=== PATIENT | female | born 1935 | race Caucasian/White ===

== ENCOUNTER → 2020-06-22 11:32 | Outpatient (BNVA) | payer MEDICARE, SELFPAY | PROVIDERS: Family Provider Physician Assistant Medical; PCP Physician Assistant Medical; Visit Provider Orthopaedic Surgery | DX: T84.84XA Pain due to internal orthopedic prosthetic devices, implants and grafts, initial encounter (principal) | CPT/HCPCS: 73610; 87070; 87075; 87205; 87635 ==

== ENCOUNTER 2020-06-27 05:52 | Day surgery (SDC) | payer MEDICARE, SELFPAY ==
[2020-06-24 17:08] VITALS: BMI 21.1
[2020-06-27] VITALS (10 sets, daily range): BP systolic 112–165; BP diastolic 42–93; PULSE 82–90; RESP 12–18; TEMP 36.4–36.6; O2SAT 93–100
[2020-06-27] MEDS: sodium chloride 0.9% 1,000 ML 30 ML IV (06:25)
--- NOTE | 2020-06-27 06:31 | ANES.PREANE2 ---
Pre-Anesthetic Assessment Pre-Anesthetic Assessment: Height/Weight: Height 1.7 m Weight 61.235 kg Temp Pulse Resp BP Pulse Ox 97.8 F 86 18 165/59 98 06/27/20 06:10 06/27/20 06:10 06/27/20 06:10 06/27/20 06:10 06/27/20 06:10 Preop Diagnosis: Infection right lateral Proposed Procedure: Operation Date: 06/27/20 07:00 Proposed Procedures p Hardware Removal right lateral Ankle 40734 T84.84XA(Right) - Kamar Willoughby MD Familial anesthetic complications: None Was Beta Ras taken within 24 hours: N/A Last intake: Intake Last Liquid Date 06/26/20 Last Liquid Time 22:30 Last Solid Date 06/26/20 Last Solid Time 22:30 Social: Social History: Tobacco and No alcohol Exam: Pre-Anes Outpt Exam: alert, oriented x 3, clear to auscultation bilaterally and regular rate & rhythm Airway: Cervical ROM: WNL MP: 2 Dentition: Partials Pulmonary: Pulmonary: GRAVES CV/HEM: CV/HEM: HTN Anesthetic Plan: ASA status: 2 Anesthesia: General Risk of > 500 ml blood loss (7ml/kg in children): No Meds/Allergies Current Medications: Current Medications Generic Name Dose Route Start Last Admin Trade Name Freq PRN Reason Stop Dose Admin Sodium Chloride 1,000 mls @ 30 ml s/hr 06/27/20 06:00 06/27/20 06:25 Sodium Chloride 0.9% IV 06/28/20 05:59 30 mls/hr .Q24H LAURA Administration PFSH Anesthesia PFSH: Social History (Updated 06/22/20 @ 11:23 by Parag Bender LPN) Smoking and tobacco status: never smoked Alcohol intake: never Data Anesthesia Cardiac Studies: No Data to Display
--- NOTE | 2020-06-27 07:09 | W.PM.OPSUD ---
Surgery/Procedure H&P Update DATE OF PROCEDURE: June 27, 2020 DATE H&P PERFORMED: 06/22/20 PREOP DIAGNOSIS: Infection right lateral PLANNED PROCEDURE: Operation Date: 06/27/20 07:00 Proposed Procedures p Hardware Removal right lateral Ankle [id number] T84.84XA(Right) - Kamar Willoughby MD
--- NOTE | 2020-06-27 08:17 | PM.OP ---
Operative Report Date of procedure: June 27, 2020 Pre-op Diagnosis: Infection right lateral ankle hardware Post-op diagnosis: same Post-op Findings: Patient had to superficial wounds along her lateral malleolar incision. There is no significant necrosis or purulence about the lateral hardware Procedure Done: Removal deep hardware right ankle Pathology: none sent Surgeon: Kamar Willoughby Anesthesia: General Estimated blood loss (mL): 10 Tourniquet time (min): 20 Condition: stable Disposition: PACU Procedure: The patient was taken to the operating room and given a general anesthesia. She is prepped and draped in the supine position with a tourniquet on the right thigh. A timeout was performed. The lateral incision was opened up in line with the scar dissection carried full-thickness down to the lateral hardware. Routine and anaerobic cultures were obtained. All screws were removed with a screwdriver and the plate easily elevated. No deep necrotic or purulent material are identified. The wound was irrigated with saline. Portals were closed with 3-0 Prolene. Sterile dressings were applied. The patient was extubated and taken to the recovery room in stable condition.
[2020-06-27] MEDS: fentaNYL 50 mcg/mL INJ 2mL IVP ×2 (08:29→08:34)
--- NOTE | 2020-06-27 15:15 | ANE.PACU2 ---
Inpatient post-anesthesia follow up: Airway intact: Yes Vital signs: Temperature 97.7 F Pulse Rate 82 Respiratory Rate 18 Blood Pressure 112/42 Pulse Oximetry 95 Oxygen Delivery Me thod Room Air Oxygen Flow Rate Fraction of Inspir ed Oxygen Hydration adequate: Yes Nausea and vomiting: No Pain level: 2 Mental status: Baseline
== END 2020-06-27 09:28 | disposition home or self-care (01) ==
PROVIDERS: PCP Physician Assistant Medical; Visit Provider Orthopaedic Surgery
PROC: (CPT 20680; principal; 2020-06-27 07:00)
DX: T84.84XA Pain due to internal orthopedic prosthetic devices, implants and grafts, initial encounter (principal); I10 Essential (primary) hypertension
CPT/HCPCS: 20680; 12345; 87070; 87075; 87205; J1580; J2405; J2704; J3010; J7030